=== PATIENT | male | born 1980 | race Caucasian/White ===

== ENCOUNTER → 2025-05-26 | Emergency (ER) | payer OTHER ==
[~2025-05-26] VITALS: Ht 195.6 cm; Wt 76.2 kg
[~2025-05-26] MED LIST: CLONAZEPAM2 MG PO; DICLOFENAC SODI75 MG PO; KETOROLAC TROMETHAMINE 60 MG VIAL IM ONE; NEURAPTINE30 GM TP; PREDNISOLO15 MG/5 ML PO; SERAQUA250 ML TP
[2025-05-26 21:41] VITALS: BP 120/80; O2SAT 96
== END | disposition home or self-care (01) ==
LOC: ER 21:31
DX: M79.672 Pain in left foot (principal); M79.671 Pain in right foot

== ENCOUNTER → 2025-05-27 | Emergency (ER) | payer OTHER ==
[~2025-05-27] MED LIST changes: -KETOROLAC TROMETHAMINE 60 MG VIAL IM ONE
== END | disposition left against medical advice (07) ==
LOC: ER 17:11
DX: Z53.21 Procedure and treatment not carried out due to patient leaving prior to being seen by health care provider (principal)

== ENCOUNTER → 2025-05-27 | Emergency (ER) | payer OTHER | END | disposition left against medical advice (07) | LOC: ER 21:39 | DX: Z53.21 Procedure and treatment not carried out due to patient leaving prior to being seen by health care provider (principal) ==

== ENCOUNTER → 2025-05-29 | Emergency (ER) | payer OTHER | END | disposition left against medical advice (07) | LOC: ER 12:14 | DX: Z53.21 Procedure and treatment not carried out due to patient leaving prior to being seen by health care provider (principal) ==